=== PATIENT | male | born 1950 | race Caucasian/White ===

== ENCOUNTER 2022-07-14 14:26 | Observation (INO) | payer MEDICARE, OTHER, SELFPAY ==
[2022-07-14] VITALS (9 sets, daily range): BP systolic 116–150; BP diastolic 68–89; PULSE 72–90; RESP 16–21; TEMP 35.9–36.8; O2SAT 96–100; BMI 28.7; BMI 29.3
--- NOTE | 2022-07-14 15:40 | PC.NURSE ---
Day shift: Pt not in room and Pt has not been admitted or in room at this time (8430).
[2022-07-14 16:25] LABS: COVID19 -Nasal RAPID Negative (Negative)
[2022-07-14] MEDS: LACTATED RINGERS 1,000 ML 42 ML IV (16:44)
[2022-07-14] MEDS: PIPERACILLIN/TAZO 3.375 GM in SODIUM CHLORIDE 0.9% 100 ML IV (17:45)
--- NOTE | 2022-07-14 18:11 | SUR.OPER ---
Supine on padded OR bed, head on pillow, arms secured on padded arm boards at <90 degrees abduction, legs uncrossed, safety belt at thigh, tape over blanket over lower legs.
[2022-07-14] MEDS: BUPIVACAINE 0.5% (PF) VIAL 30 ML INJ (18:34)
[2022-07-14] MEDS: VANCOMYCIN 1,000 MG VIAL 1000 MG TOP (18:36)
--- NOTE | 2022-07-14 19:24 | PM.OP.1 ---
Operative Date/Time/Diagnoses Date of procedure: 07/14/22 Time of procedure: 19:24 Pre-op diagnosis: Incarcerated right inguinal hernia Post-op diagnosis: same Procedure & Clinicians Procedure: Open right inguinal hernia repair with mesh Same procedure as scheduled: Yes Indications: 72-year-old man with a history of a bilateral lung transplant presented with 1 week of an incarcerated right inguinal hernia no intestinal obstructive symptoms. He is taken to the operating room for an open right inguinal hernia repair Surgeon: Rupesh Christianson Click Yes if Unassisted: Yes Anesthesia Type: General Operative Notes Findings: Small direct floor defect. Indirect hernia contains viable bowel Specimen(s): none sent Estimated Blood Loss (mL): 50 Procedure in detail: The patient was placed supine on the table and bilateral lower extremity compression devices were applied. Anesthesia was induced they were intubated with an LMA and received Ancef. A time-out was performed. They were prepped and draped in sterile fashion. The right external inguinal ring and the anterior superior iliac crest were identified and marked. 1 finger breath above the inguinal ligament the skin was infiltrated with 0.25% bupivacaine. The skin incision was made here and the subcutaneous tissues were divided with electrocautery exposing the external oblique aponeurosis which was then opened along the direction of its fibers. Using blunt dissection the internal oblique aporneurosis was from the external oblique upper leaflet. There was a large cord the contained a small-bowel. It was dissected away from the inguinal canal adjacent to the pubic tubercle. The cord including the vas deferens, testicular bloody supply, ilioguinal and genital nerve were encircled with a [place] drain. There was a small direct floor defect and it was reduced into the abdomen. The cremasteric fibers surrounding the cord were divided using electrocautery adjacent to the internal ring.. The vas deferens and the testicular vessels were preserved and protected. There was a large indirect hernia on the anterior medial aspect of the cord which was skeletonized away from the vas deferens and testicular blood supply. Indirect hernia contained viable small bowel. The indirect hernia was skeletonized back to the internal ring and reduced spontaneously into the abdomen. I selected a 7x 15 cm lightweight Pro Loop hernia mesh. The inferior medial aspect of the mesh was anchored to insertion of the rectus muscle to the pubic tubercle such that there was approximately 2 cm of tubercle overlap with Ethibond and then was run continuously along the inferior edge of the mesh to the shelving edge of the inguinal ligament. The internal ring was obliterated and it was reconstructed with her interrupted Ethibond and reinforced with a plug of mesh. Interrupted 3 0 Vicryl suture was used to anchor the superior aspect of the mesh to the conjoined tendon in several places. The tails were then reapproximated loosely around the spermatic cord. The tails of the mesh were then tucked under the external oblique aponeurosis. The repair was checked for hemostasis. The wound was irrigated with sterile saline. The external oblique aponeurosis was reapproximated in a running fashion using 3 0 Vicryl. The subcutaneous tissues were reapproximated with 3 0 Vicryl skin closed with 4 0 Monocryl followed by the application of Dermabond. At the end of the operation I ensured that both testicles were within the scrotum. The sponge instrument count at the end operation was correct. The patient emerged from anesthesia was extubated and transferred to the postoperative care unit in stable condition. A total of 30 ml of of 0.25% bupivicaine was used to infiltrate the skin. Complications: none Post-operative Condition: stable Disposition: Acute Care
--- NOTE | 2022-07-14 19:29 | SUR.PHASEI ---
Patient in PACU; stable; vss; lungs CTA; right groin incision clean, dry and intact; patient denies any pain or nausea; denies SOB.
[2022-07-14] MEDS: TRIMETH/SULFA 160/800 (DS) TABLET 0.5 TAB PO (21:05)
[2022-07-14] MEDS: OXYCODONE IR 5 MG TABLET PO (21:06)
[2022-07-15 04:03] VITALS: BP 129/77; PULSE 76; RESP 16; TEMP 36.2; O2SAT 97
[2022-07-15 06:03] LABS: Add Manual Diff / Slide Review NO; Basophils Absolute Auto 100 /uL (0-100); Basophils Percent Auto 0.9 % (0-2); Eosinophils Absolute Auto 0 /uL (0-450); Hematocrit 40.7 % (41-53); Hemoglobin 13.5 g/dL (13.5-17.5); Lymphocytes Absolute Auto 900 /uL (1100-4500); Lymphocytes Percent Auto 9.3 % (25-40); Mean Corpuscular HGB Conc 33.3 % (30-36); Mean Corpuscular Hemoglobin 29.5 PG (26-34); Mean Corpuscular Volume 88.8 fL (80-100); Monocytes Absolute Auto 200 /uL (0-900); Monocytes Percent Auto 1.7 % (3-14); Neutrophils Absolute Auto 8500 /uL (1500-7000); Neutrophils Percent Auto 88.1 % (50-75); Platelet Count 175 X10^3/uL (150-400); Red Blood Cell Count 4.58 X10^6/uL (4.5-5.9); Red Cell Distribution Width 14.2 % (11.6-14.8); White Blood Cell Count 9.7 X10^3/uL (4.5-11.0)
[2022-07-15 06:12] LABS: BUN Creatinine Ratio 15.6 (6-22); Blood Urea Nitrogen 24 mg/dL (9-20); Calcium 8.9 mg/dL (8.4-10.2); Carbon Dioxide 28 mmol/L (22-32); Chloride 104 mmol/L (98-107); Estimated Glomerular Filt Rate 48 mL/min (>60); Glucose 156 mg/dL (80-110); HEMOLYSIS < 15 (0-50); Sodium 137 mmol/L (137-145)
[2022-07-15 08:00] VITALS: BP 140/73; PULSE 84; RESP 18; TEMP 36.3; O2SAT 97
[2022-07-15] MEDS: TORSEMIDE 10 MG TABLET 20 MG PO (09:40)
[2022-07-15] MEDS: AMLODIPINE 5 MG TABLET PO (09:40)
[2022-07-15] MEDS: FLUoxetine 20 MG CAPSULE PO (09:40)
[2022-07-15] MEDS: POTASSIUM CHLORIDE 10 MEQ TAB 20 MEQ PO (09:40)
[2022-07-15] MEDS: predniSONE 5 MG TABLET PO (09:40)
[2022-07-15] MEDS: AZITHROMYCIN 250 MG TABLET PO (09:40)
--- NOTE | 2022-07-15 10:51 | P.PN_ITS ---
Subjective Subjective Date Patient Seen: 07/15/22 Time Patient Seen: 10:51 Interval history: Postop day 1 status post open right inguinal hernia repair for incarcerated hernia. Bowel was viable. Feels well today minimal pain well controlled with oral medications. Voiding normally ambulatory tolerating diet. Exam Vital Signs (past 8 hours): - 07/15/22 04:03 07/15/22 08:00 Temperature 97.1 F L 97.3 F L Pulse Rate 76 84 Respiratory Rate 16 18 Blood Pressure 129/77 140/73 Pulse Oximetry 97 97 Oxygen Flow Rate 0 Oxygen Delivery Method Room Air Oxygen Flow Rate 0 Narrative Exam Narrative: General adult male alert oriented no acute distress Abdomen soft appropriately tender to palpation. Incision right groin clean dry intact with Tegaderm in place. Objective Labs Result Diagrams: 07/15/22 05:45 07/15/22 05:45 Labs: Laboratory Results - last 24 hr 07/14/22 07/15/22 07/15/22 15:47 05:45 05:45 WBC 9.7 RBC 4.58 Hgb 13.5 Hct 40.7 L MCV 88.8 MCH 29.5 MCHC 33.3 RDW 14.2 Plt Count 175 Neut % (Auto) 88.1 H Lymph % (Auto) 9.3 L Allen % (Auto) 1.7 L Eos % (Auto) 0.0 L Baso % (Auto) 0.9 Neut # (Auto) 8500 H Lymph # (Auto) 900 L Allen # (Auto) 200 Eos # (Auto) 0 Baso # (Auto) 100 Sodium 137 Potassium 4.0 Chloride 104 Carbon Dioxide 28 BUN 24 H Creatinine 1.54 H Estimated GFR 48 L BUN/Creatinine Ratio 15.6 Glucose 156 H Calcium 8.9 SARS-CoV-2 (PCR) Negative [facility] Medical History Osteoporosis Stage 3 chronic kidney disease Surgical History History of cataract surgery Hx of tonsillectomy Lung transplant status Family History Mother Stroke Father Osuna Syndrome Grandmother Breast cancer Social History marital status: household members: spouse lives independently: Yes occupational status: previously employed Smoking Status: Never smoker alcohol intake: current Assessment & Plan Post-op Postoperative Procedures: Procedures Operation Date: 07/14/22 19:30 Actual Procedure Side Surgeon p Hernia Repair - Inguinal Right Rupesh Christianson MD Postoperative status narrative: 72-year-old male with a bilateral lung transplant postoperative day 1 status post open right inguinal hernia repair with mesh for incarcerated hernia. Bowel was viable. He is recovering appropriately from the operation. No evidence of infection or hernia recurrence. He may discharge home. Quality VTE Deep Vein Thrombosis/Pulmonary Embolism Present on Admission: No
--- NOTE | 2022-07-15 11:02 | CM.DANOTE ---
Initial Discharge Assessment Note: Introduced self and role. Payer: Medicare and [employer] 72 year old male admitted 07/14/22 for incarcerated inguinal hernia repair. Patient is recovering well. Dr Christianson in and patient can be discharged today per notes. Patient live with spouse Samy and was is independent at baseline. He desires to return home, in good spirits, he states pain controlled. Plan: To return home to [facility] with spouse transporting. JACEK Discharge Planning/Care Management CM Discharge Assessment Start: 07/15/22 11:00 Freq: Status: Active Protocol: Document 07/15/22 11:01 (Rec: 07/15/22 11:02 [id number]) Discharge Planning Assessment Assigned [place] Vianney Dickey RN/EDGARP Advance Directives? No History Provided By Patient,Medical Record Prior Living Arrangements House Household Members spouse Type of transporation used prior to Drives own vehicle admit Independent with ADL's Yes Is patient alert and oriented? Yes Needs Assistance With Home Chores / Shopping Caregiver for Another No Barriers to Discharge No Discharge Plan Home Referrals Initiated None needed Review Status In Process Next Review Type Continued Stay Review
--- NOTE | 2022-07-15 13:42 | PC.NURSE ---
Addendum entered by Bernard Verdin R.N. 07/15/22 14:05: Paperwork is singed and in Pt's chart. Original Note: Day Shift Pt departed to home via wheel chair and spouse driving private vehicle, All personal possessions given to Pt, all paperwork given to Pt and all questions answered. Pt left floor at 1340.
== END 2022-07-15 14:05 | disposition home or self-care (01) ==
PROVIDERS: Admitting Provider Surgery; Referring Provider Surgery; Visit Provider Surgery
PROC: (CPT 49507; principal; 2022-07-14 19:30)
DX: K40.30 Unilateral inguinal hernia, with obstruction, without gangrene, not specified as recurrent (principal); Z94.2 Lung transplant status; N18.30 Chronic kidney disease, stage 3 unspecified; Z20.822 Contact with and (suspected) exposure to COVID-19; Z68.28 Body mass index [BMI] 28.0-28.9, adult
CPT/HCPCS: 49507; 36415; 36592; 80048; 85025; 87635; 99214; C9803; G0378; G0379; J0330; J1100; J2250; J2405; J2543; J2704; J3010